=== PATIENT | male | born 2000 | race Caucasian/White ===

== ENCOUNTER 2021-08-08 19:39 | Observation (INO) ==
[2021-08-08 20:09] LABS: Basophils # (auto) 0.03 K/uL (0-0.2); Basophils % (auto) 0.3 %; Eosinophils # (auto) 0.06 K/uL (0-0.5); Eosinophils % (auto) 0.6 %; Hematocrit (blood only) 45.2 % (42-52); Hemoglobin 15.3 g/dL (14.0-18.0); Immature Granulocytes # (auto) 0.02 K/uL (0.00-0.02); Immature Granulocytes % (auto) 0.2 %; Lymphocytes % (auto) 11.9 %; Mean Corpuscular Hemoglobin 29.6 pg (25-34); Mean Corpuscular Hgb Conc 33.8 g/dL (32-36); Mean Corpuscular Volume 87.4 fL (80-100); Mean Platelet Volume 8.8 fL (7.4-10.4); Monocytes # (auto) 0.92 K/uL (0.11-0.59); Monocytes % (auto) 8.5 %; Neutrophils # (auto) 8.55 K/uL (1.4-6.5); Neutrophils % (auto) 78.5 %; Platelet Count 330 K/uL (130-400); RDW Coefficient of Variation 13.5 % (11.5-14.5); RDW Standard Deviation 43.6 fL (36.4-46.3); Red Blood Count 5.17 M/uL (4.7-6.1); White Blood Count 10.88 K/uL (4.8-10.8)
[2021-08-08 20:10] LABS: Appearance Urine Clear (Clear); Bacteria Urine Automated Negative (Negative); Bilirubin Urine Negative (Negative); Blood Urine Trace (Negative); Cast Urine Automated 0 /lpf (0-5); Color Urine Yellow; Epithelial Cell Urine Auto 0-5 /lpf (0-5); Glucose Urine UA Negative (Negative); Ketones Urine Negative (Negative); Leukocyte Esterase Urine Negative (Negative); Nitrite Urine Negative (Negative); Protein Urine Negative (Negative); RBC Urine Automated 0-4 /hpf (0-4); Specific Gravity Urine 1.003 (1.000-1.030); Urobilinogen Urine Negative (Negative); WBC Urine Automated 0 /hpf (0-5); pH Urine 6.5 (4.5-7.5)
[2021-08-08] MEDS ORDERED: SODIUM CHLORIDE 0.9% 1000ML 1,000 ML IV ONE (20:18)
--- NOTE | 2021-08-08 20:21 | Emergency Department Note ---
Impression & Plan RLQ abdominal pain, Leukocytosis ED Provider Note NAME: MAXIMUS YANG AGE: 20 SEX: M : 2000 ARRIVES VIA: Walk-In INFORMANT: [Patient] ED PROVIDER(S): [Carlos Mejia MD] CHIEF COMPLAINT: Abdominal pain HISTORY OF PRESENT ILLNESS: The patient is a 20-year-old male presents to the ER with around 14 to 16 hours of right lower quadrant abdominal pain. The pain is a 6 on a scale of 1-10. It is constant and does not radiate. He had a bit of nausea but there has been no vomiting. No fever, no urinary complaints, no cough, cold or congestion. He has not suffered any abdominal trauma. He did notice some loose stool, no black or bloody stool. The patient spoke to a nurse, he was referred to the ED for the possibility of appendicitis. REVIEW OF SYSTEMS: See HPI for pertinent positives and negatives. A total of ten systems were reviewed and were otherwise negative. PMHx/PSHx: See Below SOCIAL HISTORY: See Below. PHYSICAL EXAM: GENERAL: Patient is in no acute distress. HEENT: No acute trauma, normocephalic atraumatic, mucous membranes moist, no nasal congestion, no scleral icterus. NECK: No stridor, no adenopathy, no meningismus, trachea is midline. LUNGS: Clear to auscultation bilaterally, no wheeze, no rhonchi, breath sounds equal. HEART: Without murmurs gallops or rubs, regular rate and rhythm. ABDOMEN: Soft, moderately tender in the right lower quadrant, bowel sounds positive, no hernias, no peritonitis. EXTREMITIES: No cyanosis or edema, full range of motion of all the joints without pain or difficulty, no signs for acute trauma. NEUROLOGIC: Oriented x 3, no acute motor or sensory deficits, no focal weakness. SKIN: No rash, no jaundice, no diaphoresis. DIFFERENTIAL DIAGNOSIS: Appendicitis, testicular torsion, diverticulitis, UTI, obstruction, mesenteric ischemia, aortic pathology, inflammatory bowel disease, renal colic, PUD, pancreatitis, biliary pathology, hernia, volvulus, constipation, as well as other pathologies. EMERGENCY DEPARTMENT COURSE/PROCEDURES: MEDICAL DECISION MAKING: There is a subtle leukocytosis which could be consistent with infection. No worrisome anemia. There is a normal platelet count. Potassium is a bit low but not in need of emergent correction. No renal failure. No worrisome liver enzyme elevation. No evidence for pancreatitis. Urinalysis does not show any evidence for infection. Abdominal and pelvis CT suggests potential early appendicitis with a dilated appendix. On exam, the patient was tender in the right lower quadrant. He was not febrile or toxic. The patient received IV saline, 1 L. He was eventually given a dose of IV Mefoxin as antibiotic coverage. I spoke to the patient, I talked to general surgery. The patient is being hospitalized for a potential appendectomy if his symptoms persist into the morning. Case management has been involved. Past Med/Surg History Medical History No significant medical problems Social History Smoking Status: Never smoker Preferred Language: Montenegrin Feels Safe at Home: Yes Allergies Allergies Allergy/AdvReac Type Severity Reaction Status Date / Time house dust Allergy Intermediate ITCHY Verified 08/08/21 21:01 EYES, SNEEZING, CONGESTION Home Meds Home Medications Medication Instructions Recorded Confirmed ibuprofen 200 mg tablet 200 mg PO DIRECTED PRN 08/08/21 08/08/21 simethicone 80 mg chewable tablet 80 mg PO DIRECTED PRN 08/08/21 08/08/21 Results & Data (ED) Vital Signs Vital Signs - 24 hr 08/08/21 19:46 08/08/21 20:38 Temperature 36.9 C Temperature Source Temporal Artery Scan Pulse Rate 72 Pulse Rate [Finger] 76 Pulse Rhythm [Finger] Regular Pulse Strength [Finger] Normal Respiratory Rate 19 18 Respiratory Effort / Characteristics Non-Labored Spontaneous Respiratory Depth Normal Blood Pressure 135/77 Blood Pressure [Right Arm] 135/65 Blood Pressure Mean 96 Blood Pressure Mean [Right Arm] 88 Blood Pressure Position [Right Arm] Lying Pulse Oximetry 98 98 Oxygen Delivery Method Room Air Room Air Sepsis Recent Fever Within 48 Hours No Sepsis New/Unexplained Change in Mental Status N/A Sepsis Action Taken by Nursing No Action Required Home Medications Current Medication List: was personally reviewed by me Laboratory Data Attestation: I reviewed the patient's lab results. Result diagrams: 08/08/21 19:54 08/08/21 19:54 Lab Results 02/24/22 02/24/22 02/24/22 Range/Units 19:54 19:54 19:56 WBC 10.88 H (4.8-10.8) K/uL RBC 5.17 (4.7-6.1) M/uL Hgb 15.3 (14.0-18.0) g/dL Hct 45.2 (42-52) % MCV 87.4 (80-100) fL MCH 29.6 (25-34) pg MCHC 33.8 (32-36) g/dL RDW Std Deviation 43.6 (36.4-46.3) fL RDW Coeff of [place] 13.5 (11.5-14.5) % Plt Count 330 (130-400) K/uL MPV 8.8 (7.4-10.4) fL Immature Gran % (Auto) 0.2 % Neut % (Auto) 78.5 % Lymph % (Auto) 11.9 % [place] % (Auto) 8.5 % Eos % (Auto) 0.6 % Baso % (Auto) 0.3 % Neut # (Auto) 8.55 H (1.4-6.5) K/uL Lymph # (Auto) 1.30 (1.2-3.4) K/uL [place] # (Auto) 0.92 H (0.11-0.59) K/uL Eos # (Auto) 0.06 (0-0.5) K/uL Baso # (Auto) 0.03 (0-0.2) K/uL Immature Gran # (Auto) 0.02 (0.00-0.02) K/uL Sodium 137 (136-145) mmol/L Potassium 3.4 L (3.5-5.1) mmol/L Chloride 99 (98-107) mmol/L Carbon Dioxide 28 (21-32) mmol/L Anion Gap 10 (3-11) BUN 10 (6-23) mg/dl Creatinine 0.86 (0.6-1.4) mg/dl Est Cr Clr Drug Dosing 129.8 ml/min Est GFR ( Amer) 145.7 ml/min Est GFR (Non-Af Amer) 125.7 ml/min BUN/Creatinine Ratio 11.6 (10-20) Glucose 94 (70-99(Fasting)) mg/dl Calcium 9.8 (8.5-10.1) mg/dl Total Bilirubin 1.1 H (0.2-1.0) mg/dl AST 30 (13-39) U/L ALT 31 (7-52) U/L Alkaline Phosphatase 67 (34-104) U/L Total Protein 7.9 (6.0-8.3) gm/dl Albumin 5.0 (3.4-5.0) gm/dl Globulin 2.9 (2.5-4.0) gm/dl Albumin/Globulin Ratio 1.7 (0.9-2) Lipase 13 (11-82) U/L Urine Color Yellow Urine Appearance Clear (Clear) Urine pH 6.5 (4.5-7.5) Ur Specific [place] 1.003 (1.000-1.030) Urine Protein Negative (Negative) Urine Glucose (UA) Negative (Negative) Urine Ketones Negative (Negative) Urine Blood Trace H (Negative) Urine Nitrite Negative (Negative) Urine Bilirubin Negative (Negative) Urine Urobilinogen Negative (Negative) Ur Leukocyte Esterase Negative (Negative) Urine WBC (Auto) 0 (0-5) /hpf Urine RBC (Auto) 0-4 (0-4) /hpf U Hyaline Cast (Auto) 0 (0-5) /lpf U Epithel Cells (Auto) 0-5 (0-5) /lpf Urine Bacteria (Auto) Negative (Negative) Administered Medications Discontinued Medications Sodium Chloride (Nss 1000ml) 1,000 mls @ 999 mls/hr IV .Q1H1M ONE Stop: 08/08/21 21:18 Last Admin: 08/08/21 20:38 Dose: 999 mls/hr Documented by: [id number] Ioversol (Optiray 320 100ml) 95 ml IV ONCE ONE Stop: 08/08/21 20:46 Last Admin: 08/08/21 20:48 Dose: 95 ml Documented by: [id number] Imaging Data Radiologist's Impression: Abdomen/Pelvis CT 08/08/21 20:17 CT OF THE ABDOMEN AND PELVIS WITH CONTRAST CLINICAL HISTORY: Right lower quadrant abdominal pain. COMPARISON STUDY: None. TECHNIQUE: Following IV administration of 95 mL of Optiray, axial images of the abdomen and pelvis were obtained from the lung bases to the proximal femurs. Images were reviewed in the axial, sagittal, and coronal planes. IV contrast was administered without complication. Automated exposure control was utilized for the study. A dose lowering technique was utilized adhering to the principles of ALARA. CT DOSE: 277.58 mGy.cm FINDINGS: Lung bases are unremarkable. There is pectus excavatum deformity. No pneumatosis, free air or portal venous gas is present. The liver, spleen, adrenal glands, kidneys and pancreas are normal. There is no biliary or pancreatic ductal dilatation. No peripancreatic or pericholecystic infiltration is present. There is no hydronephrosis. There is no evidence for a bowel obstruction. The appendix is fluid-filled slightly dilated, measuring 7 mm in caliber. There is no periappendiceal infiltration. No free air or abscess is present. The appendiceal wall is slightly prominent. There is no ascites. No lymphadenopathy is present. A 1.5 cm midline prostatic cyst may reflect a prostatic utricle cyst. No acute fracture or suspicious lesion is identified within the visualized skeletal structures. IMPRESSION: Fluid-filled, minimally dilated appendix. No periappendiceal infiltration. Although equivocal, these findings do not strongly suggest acute appendicitis. Close clinical follow-up is recommended. ACT 112: Negative or not required by law. Electronically signed by: Cameron Maloney M.D. 08/08/2021 9:30 PM Discharge Plan Visit Data Chief Complaint: Abdominal Pain Stated Complaint: ABDOMINAL PAIN ED Provider: Carlos Mejia Discharge Problem: RLQ abdominal pain, Leukocytosis Patient Disposition: Admitted As Inpatient Condition: Good Forms Stand Alone Forms: [employer] Prescriptions Prescriptions: No Action ibuprofen 200 mg Tablet 200 mg PO DIRECTED PRN (Reason: Pain) RF: 0 simethicone [Gas-X] 80 mg Tablet,Chewable 80 mg PO DIRECTED PRN (Reason: BLOATING/GAS RELIEF) RF: 0 Referrals Referrals: PCP,NO [Primary Care Provider] -
[2021-08-08 20:27] LABS: Albumin Globulin Ratio 1.7 (0.9-2); BUN Creatinine Ratio 11.6 (10-20); Bilirubin,Total 1.1 mg/dl (0.2-1.0); Calcium 9.8 mg/dl (8.5-10.1); Creatinine Clr Calc Pharmacy 129.8 ml/min; Est GFR (African American) 145.7 ml/min; Est GFR (Non-African American) 125.7 ml/min; Globulin 2.9 gm/dl (2.5-4.0); Potassium 3.4 mmol/L (3.5-5.1); Total Protein 7.9 gm/dl (6.0-8.3)
[2021-08-08] MEDS ORDERED: OPTIRAY 320 100ml IV ONE (20:45)
--- NOTE | 2021-08-08 21:31 | CT Scan Report ---
CT OF THE ABDOMEN AND PELVIS WITH CONTRAST CLINICAL HISTORY: Right lower quadrant abdominal pain. COMPARISON STUDY: None. TECHNIQUE: Following IV administration of 95 mL of Optiray, axial images of the abdomen and pelvis we re obtained from the lung bases to the proximal femurs. Images were reviewed in the axial, sagittal, and coronal planes. IV contrast was administered without complication. Automated exposure control wa s utilized for the study. A dose lowering technique was utilized adhering to the principles of ALARA . CT DOSE: 277.58 mGy.cm FINDINGS: Lung bases are unremarkable. There is pectus excavatum deformity. No pneumatosis, free air or portal venous gas is present. The liver, spleen, adrenal glands, kidneys and pancreas are normal. There is no biliary or pancreatic ductal dilatation. No peripancreatic or pericholecystic infiltratio n is present. There is no hydronephrosis. There is no evidence for a bowel obstruction. The appendix is fluid-filled slightly dilated, measuring 7 mm in caliber. There is no periappendiceal infiltration . No free air or abscess is present. The appendiceal wall is slightly prominent. There is no ascites. No lymphadenopathy is present. A 1.5 cm midline prostatic cyst may reflect a prostatic utricle cyst. No acute fracture or suspicious lesion is identified within the visualized skeletal structures. IMPRESSION: Fluid-filled, minimally dilated appendix. No periappendiceal infiltration. Although equi vocal, these findings do not strongly suggest acute appendicitis. Close clinical follow-up is recomme nded. ACT 112: Negative or not required by law. Electronically signed by: Cameron Maloney M.D. 08/08/2021 9:30 PM
[2021-08-08] MEDS ORDERED: cefOXitin 2,000 MG/60 ML BAG IV STA (21:44)
--- NOTE | 2021-08-08 22:10 | History & Physical Report ---
Date of Service August 08, 2021 Assessment & Plan (1) Appendicitis: Plan: Due to the patient's clinical presentation, slightly elevated white blood cell count, and CT scan findings we will proceed as follows: We will admit the patient to the hospital Analgesics will be provided Antiemetics will be provided We will hydrate the patient with IV fluids We will supplement the patient's potassium We will administer antibiotics. The treating physician the emergency department has initiated cefoxitin which we will continue We will make the patient n.p.o. We are tentatively planning on performing a laparoscopic, possible open appendectomy tomorrow morning with Dr. Baron. I have outlined the risks, benefits, and alternatives with the patient. I have also discussed the expected postoperative course with the patient and he wishes to proceed. Additional recommendations will be forthcoming based on operative findings and the patient's clinical course as it unfolds SCDs will be used for DVT prevention. No chemical means due to planned surgery He will be level 1 full code History of Present Illness Chief Complaint: Abdominal pain Primary Care Provider: NO PCP This is a 20-year-old male who presented to [facility] emergency department secondary to abdominal pain. Patient said that the pain had been present for approximately 14 hours prior to his presentation to the emergency department. He initially described the pain as a generalized bandlike pain across his entire lower abdomen without radiation. He notes that since pain began it has shifted to the right lower quadrant. He has had nausea without vomiting. He does note some decreased appetite. He denies any fevers, shakes, chills. He notes that he has never had any prior abdominal surgeries In the emergency department patient had labs and imaging which I independently reviewed. A CBC revealed a slight elevation of his white blood cell count at 10.8. Hemoglobin, hematocrit, and platelet count were all noted to be normal. Chemistry profile showed sodium, BUN, and creatinine were all normal. His pota ssium was slightly decreased at 3.4. Urinalysis was not indicative of infection. CT scan of the abdomen pelvis showed that the appendix was minimally dilated but fluid-filled. There is really not much in the way of periappendiceal infiltration. At the time of my interview he was resting comfortably in bed in no distress Allergies Allergy/AdvReac Type Severity Reaction Status Date / Time house dust Allergy Intermediate ITCHY Verified 08/08/21 21:01 EYES, SNEEZING, CONGESTION Home Medications Medication Instructions Recorded Confirmed Type ibuprofen 200 mg tablet 200 mg PO DIRECTED PRN 08/08/21 08/08/21 History simethicone 80 mg chewable tablet 80 mg PO DIRECTED PRN 08/08/21 08/08/21 History Past Med/Surg History Medical History No significant medical problems Social History Smoking Status: Never smoker Preferred Language: Occitan Feels Safe at Home: Yes Review of Systems Constitutional: no fever and no chills Eyes: no diplopia Ear, Nose, Mouth, Throat: no ear pain Respiratory: no cough and no dyspnea Cardiovascular: no chest pain Gastrointestinal: + abdominal pain and + nausea; no vomiting Genitourinary: no dysuria Musculoskeletal: no back pain Integumentary: no rash Neurologic: no localized weakness Physical Exam Constitutional: well developed, well nourished and + thin; no acute distress Eyes: no conjunctival abnormality ENMT: Ears: no hearing impairment Neck: trachea midline Respiratory: normal respiratory effort; no respiratory distress and no labored breathing Cardiovascular: Rate/Rhythm: regular rate and regular rhythm Gastrointestinal (Abdomen): Abdomen is soft and nondistended. There is no rebound tenderness or guarding. The patient did have pain with deep palpation in the right lower quadrant over McBurney's point Musculoskeletal: No calf tenderness Skin: no rashes Neurologic: moves all extremities Psychiatric: A+Ox3, euthymic affect Results & Data Results & Data ([facility]) Vital Signs (Past 12 Hours) Vital Signs Temp Pulse Pulse Resp BP BP Pulse Ox 08/08/21 20:38 76 18 135/65 98 08/08/21 19:46 36.9 C 72 19 135/77 98 Supervising Physician Co-Signing Physician Notes Patient discussed with ABENA Garcia, labs and films reviewed, agree with above. Presented with RLQ abdominal pain. WBC mild elevation with left shift. CT personally reviewed. Likely acute appendicits, plan for OR in am. PG Care Time/CCT Total # of Minutes Spent Total Time Spent with Patient: Total time spent is greater than 50% in coordination of care (as documented) at patient's floor/unit and/or counseling patient: Coding Level of Care Code INT OBSERVATION CARE 70M LVL 3 Diagnoses Appendicitis K37
[2021-08-09] MEDS ORDERED: ACETAMINOPHEN 1,000 MG/100 ML VIAL IV PRN (00:38)
[2021-08-09] MEDS ORDERED: ONDANSETRON INJ 2 MG/ML 2 ML VIAL IV PRN ×2 (00:38→07:55)
[2021-08-09] MEDS ORDERED: MoRPHine SULFATE 2 MG/ML CARP IV PRN (00:38)
[2021-08-09] MEDS ORDERED: POTASSIUM CHLORIDE / WTR 10 MEQ/100 ML PLCT IV ONE (01:00)
[2021-08-09] MEDS: LACTATED RINGER'S 1,000 ML IV SCH ×2 (01:09→16:02)
[2021-08-09] MEDS: cefOXitin 2,000 MG in DEXTROSE 5% 50 ML IV SCH ×2 (03:51→10:45)
[2021-08-09] MEDS ORDERED: PROPOFOL IV EMULSION 10 MG/ML 20 ML VIAL IV ONE (07:10)
[2021-08-09] MEDS ORDERED: ONDANSETRON INJ 2 MG/ML 2 ML VIAL ONE (07:10)
[2021-08-09] MEDS ORDERED: ROCURONIUM BROMIDE 10 MG/ML 5 ML VIAL IV ONE (07:10)
[2021-08-09] MEDS ORDERED: LIDOCAINE 2% 2 ML VIAL/AMP(20MG/ML) INFIL ONE (07:10)
[2021-08-09] MEDS ORDERED: DEXAMETHASONE SOD INJ 4 MG/ML VIAL ONE (07:10)
[2021-08-09] MEDS ORDERED: MIDAZOLAM HCL 1 MG/ML 2ML VIAL ONE (07:11)
[2021-08-09] MEDS ORDERED: fentaNYL citrate 100 MCG/2 ML VIAL ONE ×2 (07:11→08:24)
--- NOTE | 2021-08-09 07:16 | Anesthesiology Consultation ---
Date of Service August 09, 2021 Assessment & Plan (1) Encounter for pre-operative examination: Chart Review Chart Review: Acceptable Risk for Surgery and Patient NOT seen in Pre Admission Testing Consults Requested none History Surgery Operation Date: 08/09/21 13:05 Proposed Procedures p Laparoscopic Appendectomy, Possible Open - Trell Baron DO, FACS Height/Weight Height: 5 ft 11 in Weight: 72.575 kg Allergies Allergy/AdvReac Type Severity Reaction Status Date / Time house dust Allergy Intermediate ITCHY Verified 08/08/21 21:01 EYES, SNEEZING, CONGESTION Medications Home Medications Medication Instructions Recorded Confirmed Last Taken ibuprofen 200 mg tablet 200 mg PO DIRECTED PRN 08/08/21 08/08/21 08/08/21 simethicone 80 mg chewable tablet 80 mg PO DIRECTED PRN 08/08/21 08/08/21 08/08/21 Active Medications Generic Name Dose Route Start Last Admin Trade Name Freq PRN Reason Stop Dose Admin Cefoxitin Sodium 2,000 mg/ 60 mls @ 100 mls/hr 08/09/21 04:00 08/09/21 04:31 Dextrose IV 08/19/21 03:59 Infused Q6H MAKAYLA Infusion Lactated Ringer's 1,000 mls @ 75 mls/hr 08/09/21 00:38 08/09/21 01:09 Lr IV 09/08/21 00:37 75 mls/hr .[id number] Administration NPO Date Last Intake of Fluids: 08/08/21 Past Medical History Medical History No significant medical problems Social History Smoking Status: Never smoker Hx Alcohol Use: No Hx Substance Use: No Physical Exam Vital Signs Last Vital Signs Temp 98.1 F 08/09/21 00:31 Pulse 69 08/09/21 00:31 Resp 14 08/09/21 00:31 BP 136/71 08/09/21 00:31 Pulse Ox 96 08/09/21 00:31 Testing Laboratory Results 08/08/21 19:54 08/08/21 19:54 Urine Color Yellow 08/08/21 19:56 Urine Appearance Clear (Clear) 08/08/21 19:56 Urine pH 6.5 (4.5-7.5) 08/08/21 19:56 Ur Specific [place] 1.003 (1.000-1.030) 08/08/21 19:56 Urine Protein Negative (Negative) 08/08/21 19:56 Urine Glucose (UA) Negative (Negative) 08/08/21 19:56 Urine Ketones Negative (Negative) 08/08/21 19:56 Urine Nitrite Negative (Negative) 08/08/21 19:56 Ur Leukocyte Esterase Negative (Negative) 08/08/21 19:56 Urine WBC (Auto) 0 /hpf (0-5) 08/08/21 19:56 Urine RBC (Auto) 0-4 /hpf (0-4) 08/08/21 19:56 U Hyaline Cast (Auto) 0 /lpf (0-5) 08/08/21 19:56 U Epithel Cells (Auto) 0-5 /lpf (0-5) 08/08/21 19:56 Urine Bacteria (Auto) Negative (Negative) 08/08/21 19:56
[2021-08-09] MEDS ORDERED: ATROPINE SULFATE 0.1 MG/ML 10ML SYR IV PRN (07:55)
[2021-08-09] MEDS ORDERED: ePHEDrine sulfate 50 MG/ML AMP IV PRN (07:55)
[2021-08-09] MEDS ORDERED: fentaNYL citrate 100 MCG/2 ML VIAL IV PRN (07:55)
[2021-08-09] MEDS ORDERED: PROMETHAZINE HCL 6.25 MG in SODIUM CHLORIDE 0.9% 50 ML IV PRN (07:55)
[2021-08-09] MEDS ORDERED: BUPIVACAINE 0.5 % 5 MG/1 ML MPF 30ML VIAL ONE (08:00)
--- NOTE | 2021-08-09 08:01 | Surgery Progress Note ---
Date of Service August 09, 2021 Assessment & Plan (1) Appendicitis: Plan: 20 year old male with acute appendicitis plan for laparoscopic appendectomy risks discussed to include but not limited to bleeding, infection, normal appendix, open surgery, damage to surrounding structures, abscess, need for future or more extensive surgery, and risks of anesthesia. Likely home later today Admission and Anticipated Discharge Date Admission Date: August 08, 2021 Subjective 20-year-old male admitted for acute appendicitis. Still with some pain in the right lower quadrant, no issues overnight Physical Exam Constitutional: WD/WN, vitals as above Respiratory: normal respiratory effort, lungs clear to auscultation Cardiovascular: RRR, no murmur, no edema Gastrointestinal (Abdomen): Percussion/Palpation: + abdomen tender (Tender to palpation in the right lower quadrant) and abdomen soft; no guarding, abdomen not rigid and no hepatosplenomegaly Results & Data ([facility]) Vital Signs (Past 12 Hours) Vital Signs Temp Pulse Pulse Resp BP Pulse Ox 08/09/21 07:42 36.7 C 82 18 146/73 H 99 08/09/21 07:34 36.4 C L 101 H 16 157/67 H 97 08/09/21 00:31 36.7 C 69 14 136/71 96 08/09/21 00:27 93 H 16 96 08/09/21 00:19 37.1 C 93 H 16 127/59 L 96 08/08/21 22:00 71 18 130/69 99 08/08/21 20:38 76 18 135/65 98 Laboratory Results Laboratory Results - last 24 hr 08/08/21 08/08/21 08/08/21 19:54 19:54 19:56 WBC 10.88 H RBC 5.17 Hgb 15.3 Hct 45.2 MCV 87.4 MCH 29.6 MCHC 33.8 RDW Std Deviation 43.6 RDW Coeff of [place] 13.5 Plt Count 330 MPV 8.8 Immature Gran % (Auto) 0.2 Neut % (Auto) 78.5 Lymph % (Auto) 11.9 [place] % (Auto) 8.5 Eos % (Auto) 0.6 Baso % (Auto) 0.3 Neut # (Auto) 8.55 H Lymph # (Auto) 1.30 [place] # (Auto) 0.92 H Eos # (Auto) 0.06 Baso # (Auto) 0.03 Immature Gran # (Auto) 0.02 Sodium 137 Potassium 3.4 L Chloride 99 Carbon Dioxide 28 Anion Gap 10 BUN 10 Creatinine 0.86 Est Cr Clr Drug Dosing 129.8 Est GFR ( Amer) 145.7 Est GFR (Non-Af Amer) 125.7 BUN/Creatinine Ratio 11.6 Glucose 94 Calcium 9.8 Total Bilirubin 1.1 H AST 30 ALT 31 Alkaline Phosphatase 67 Total Protein 7.9 Albumin 5.0 Globulin 2.9 Albumin/Globulin Ratio 1.7 Lipase 13 Urine Color Yellow Urine Appearance Clear Urine pH 6.5 Ur Specific [place] 1.003 Urine Protein Negative Urine Glucose (UA) Negative Urine Ketones Negative Urine Blood Trace H Urine Nitrite Negative Urine Bilirubin Negative Urine Urobilinogen Negative Ur Leukocyte Esterase Negative Urine WBC (Auto) 0 Urine RBC (Auto) 0-4 U Hyaline Cast (Auto) 0 U Epithel Cells (Auto) 0-5 Urine Bacteria (Auto) Negative SARS-CoV-2, RNA, NAAT 08/08/21 22:42 WBC RBC Hgb Hct MCV MCH MCHC RDW Std Deviation RDW Coeff of [place] Plt Count MPV Immature Gran % (Auto) Neut % (Auto) Lymph % (Auto) [place] % (Auto) Eos % (Auto) Baso % (Auto) Neut # (Auto) Lymph # (Auto) [place] # (Auto) Eos # (Auto) Baso # (Auto) Immature Gran # (Auto) Sodium Potassium Chloride Carbon Dioxide Anion Gap BUN Creatinine Est Cr Clr Drug Dosing Est GFR ( Amer) Est GFR (Non-Af Amer) BUN/Creatinine Ratio Glucose Calcium Total Bilirubin AST ALT Alkaline Phosphatase Total Protein Albumin Globulin Albumin/Globulin Ratio Lipase Urine Color Urine Appearance Urine pH Ur Specific [place] Urine Protein Urine Glucose (UA) Urine Ketones Urine Blood Urine Nitrite Urine Bilirubin Urine Urobilinogen Ur Leukocyte Esterase Urine WBC (Auto) Urine RBC (Auto) U Hyaline Cast (Auto) U Epithel Cells (Auto) Urine Bacteria (Auto) SARS-CoV-2, RNA, NAAT NEGATIVE Diagnostic Findings CT OF THE ABDOMEN AND PELVIS WITH CONTRAST CLINICAL HISTORY: Right lower quadrant abdominal pain. COMPARISON STUDY: None. TECHNIQUE: Following IV administration of 95 mL of Optiray, axial images of the abdomen and pelvis were obtained from the lung bases to the proximal femurs. Images were reviewed in the axial, sagittal, and coronal planes. IV contrast was administered without complication. Automated exposure control was utilized for the study. A dose lowering technique was utilized adhering to the principles of ALARA. CT DOSE: 277.58 mGy.cm FINDINGS: Lung bases are unremarkable. There is pectus excavatum deformity. No pneumatosis, free air or portal venous gas is present. The liver, spleen, adrenal glands, kidneys and pancreas are normal. There is no biliary or pancreatic ductal dilatation. No peripancreatic or pericholecystic infiltration is present. There is no hydronephrosis. There is no evidence for a bowel obstruction. The appendix is fluid-filled slightly dilated, measuring 7 mm in caliber. There is no periappendiceal infiltration. No free air or abscess is present. The appendiceal wall is slightly prominent. There is no ascites. No lymphadenopathy is present. A 1.5 cm midline prostatic cyst may reflect a prostatic utricle cyst. No acute fracture or suspicious lesion is identified within the visualized skeletal structures. IMPRESSION: Fluid-filled, minimally dilated appendix. No periappendiceal infiltration. Although equivocal, these findings do not strongly suggest acute appendicitis. Close clinical follow-up is recommended. PG Care Time/CCT Total # of Minutes Spent Total Time Spent with Patient: Total time spent is greater than 50% in coordination of care (as documented) at patient's floor/unit and/or counseling patient: Coding Level of Care Code 64230 Subseq Obs Care Lvl 1 Diagnoses Appendicitis K37
[2021-08-09] MEDS ORDERED: GLYCOPYRROLATE 0.2 MG/ML VIAL ONE (08:23)
[2021-08-09] MEDS ORDERED: NEOSTIGMINE METHYLSULFATE 1 MG/ML 10ML VIAL ONE (08:23)
--- NOTE | 2021-08-09 08:48 | Operative Report ---
PG Post Operative Report Pre & Post Diagnosis Operation Date: 08/09/21 13:05 Pre-Op Diagnosis: acute appendicitis Post-Op Diagnosis: acute appendicitis I identified the patient and participated in the time-out.: Yes Procedure Operation Date: 08/09/21 13:05 Actual Procedures p Laparoscopic Appendectomy(Not Applicable) - Trell Baron DO, LUIZA Surgeon Trell Baron DO, FACS Pin Or Clip Fastener Joanne Jackson Estimated Blood Loss 5 Findings Consistent with Post-Op Diagnosis Acute, nonperforated appendicitis. Specimens Appendix Anesthesia Type General Complications none Disposition Accompanied Patient To Recovery: No Disposition: Recovery Room Indications 20-year-old male admitted with acute appendicitis, plan for laparoscopic appendectomy. The risks of the procedure were discussed, all questions were answered, and the patient agreed to proceed with surgery as planned. Description of Procedure The patient was properly identified, consented, and taken to the operating room where he was placed in the supine position. General endotracheal anesthesia was induced. SCDs and a safety belt were placed. Preoperative antibiotics were administered. A Mckeon catheter was not placed. The patient's abdomen was prepped and draped in the standard sterile fashion. Surgical timeout was performed and all parties were in agreement that this was the correct patient and procedure to be performed and we continued as planned. A curvilinear infraumbilical incision was made with electrocautery and deepened down to the fascia with blunt dissection. The base of the umbilicus was grasped with a Eva and elevated towards the ceiling. An incision was made in the midline fascia with a knife and entry into the peritoneum was confirmed. Stay suture of 0 Vicryl was placed and a Brady trocar was inserted. The abdomen was insufflated with carbon dioxide which the patient tolerated without incident. The laparoscope was inserted and no damage from initial trocar placement was noted, no gross abnormalities were noted within the 4 quadrants the abdomen. 5 mm ports were then placed in the left lower quadrant with care not to damage the epigastric vessels, and in the suprapubic midline with care not to damage the bladder. The patient was placed in Trendelenburg position and rotated towards the left. The small bowel was swept away from the right lower quadrant. The cecum was grasped with an atraumatic grasper exposing the appendix. The appendix was moderately inflamed in the distal third and there was no evidence of perf oration. There was no fluid in the pelvis. A window was created between the base of the appendix and the mesoappendix. A turner loaded endoscopic stapler was then used to divide the appendix at its base. A turner load was then used to divide the mesoappendix. Hemostasis was good. The appendix was placed in an Endo Catch bag and removed through the umbilical port site. The right lower quadrant and pelvis was irrigated and hemostasis was found to be good. 5 mm trochars were removed under direct visualization and the abdomen was allowed to collapse. The umbilical port site fascia was closed with 0 Vicryl suture. The wound was irrigated, and the skin of all ports was closed with 4-0 Monocryl subcuticular sutures. Dermabond was placed over the wounds. The patient was extubated in the operating room and taken to the PACU where he recovered without apparent incident. All sponge, instrument and needle counts were correct at the conclusion of the procedure. The patient tolerated the procedure well. The physician's pet care assistant was present and scrubbed for the entire the case. She was critical in positioning the patient, prepping and draping, retraction and exposure, driving the laparoscope, removal of the appendix, closure the incisions, and placement of the dressings. I attest to the content of the Intraoperative Record and any orders documented therein. Any exceptions are noted below.
--- NOTE | 2021-08-09 09:29 | Anesthesiology Progress Note ---
Date of Service August 09, 2021 Anesthesia Post Procedure Vital Signs Vital Signs: Temp Pulse Pulse Pulse Resp BP BP 08/09/21 09:15 60 21 107/56 L 08/09/21 09:05 63 16 110/59 L 08/09/21 08:58 97.3 F L 59 L 10 L 113/65 08/09/21 07:42 98.1 F 82 18 146/73 H 08/09/21 07:34 97.5 F L 101 H 16 157/67 H 08/09/21 00:31 98.1 F 69 14 136/71 08/09/21 00:27 93 H 16 08/09/21 00:19 98.8 F 93 H 16 127/59 L 08/08/21 22:00 71 18 130/69 08/08/21 20:38 76 18 135/65 08/08/21 19:46 98.4 F 72 19 135/77 Pulse Ox 08/09/21 09:15 98 08/09/21 09:05 97 08/09/21 08:58 99 08/09/21 07:42 99 08/09/21 07:34 97 08/09/21 00:31 96 08/09/21 00:27 96 08/09/21 00:19 96 08/08/21 22:00 99 08/08/21 20:38 98 08/08/21 19:46 98 Pain Intensity Right Abdomen: Pain Intensity: 0 Transfer of Care Handoff Completed per policy Notes Mental Status: alert / awake / arousable and participated in evaluation Patient Amnestic to Procedure: Yes Nausea / Vomiting: adequately controlled Pain: adequately controlled Airway Patency, RR, SpO2: stable & adequate BP & HR: stable & adequate Hydration State: stable & adequate Anesthetic Complications: no major complications apparent and Pt Satisfied with anesthetic care
[2021-08-09] MEDS ORDERED: oxyCODONE/ACETAMINOPHEN 5mg/325mg TAB PO PRN ×2 (09:54)
[2021-08-09] MEDS ORDERED: IBUPROFEN 200 MG TAB PO STA (13:52)
[2021-08-09] MEDS ORDERED: IBUPROFEN 200 MG TAB PO PRN (14:18)
[2021-08-09] MEDS ORDERED: ACETAMINOPHEN 325 MG TAB PO PRN (14:19)
--- NOTE | 2021-08-13 10:26 | Discharge Summary ---
Date of Service July, Admission HPI Per Admitting Provider This is a 20-year-old male who presented to [facility] emergency department secondary to abdominal pain. Patient said that the pain had been present for approximately 14 hours prior to his presentation to the emergency department. He initially described the pain as a generalized bandlike pain across his entire lower abdomen without radiation. He notes that since pain began it has shifted to the right lower quadrant. He has had nausea without vomiting. He does note some decreased appetite. He denies any fevers, shakes, chills. He notes that he has never had any prior abdominal surgeries In the emergency department patient had labs and imaging which I independently reviewed. A CBC revealed a slight elevation of his white blood cell count at 10.8. Hemoglobin, hematocrit, and platelet count were all noted to be normal. Chemistry profile showed sodium, BUN, and creatinine were all normal. His potassium was slightly decreased at 3.4. Urinalysis was not indicative of infection. CT scan of the abdomen pelvis showed that the appendix was minimally dilated but fluid-filled. There is really not much in the way of periappendiceal infiltration. At the time of my interview he was resting comfortably in bed in no distress Principal Diagnosis acute appendicitis Discharge Exam awake/alert Gastrointestinal (Abdomen) Inspection/Auscultation: + abdominal surgical incision (c/d/i with dermabond) Discharge Data Allergies Allergy/AdvReac Type Severity Reaction Status Date / Time house dust Allergy Intermediate ITCHY Verified 08/08/21 21:01 EYES, SNEEZING, CONGESTION Consultations 08/08/21 21:44 ED Decision to Admit Stat Procedures Performed Operation Date: 08/09/21 13:05 Actual Procedures p Laparoscopic Appendectomy(Not Applicable) - Trell Baron DO, FACS Ordered Studies 08/08/21 20:17 CT abd pelvis IV con only Stat Hospital Course (1) Appendicitis: This is a 20yM who presented to the [facility] ED on 08/08/21 with abdominal pain. Workup in the ED showed a WBC of 10.[address] a/p showing a fluid filled, mildly dilated appendix equivocal for acute appendicitis. The patient was tender to palpation in the RLQ. Patient was made NPO with IVF and booked for the OR. On the AM of 08/09 the patient went to the OR with Dr. Baron for a laparoscopic appendectomy. The patient tolerated the procedure well, see operative report for full details. Post operatively the patient's diet was advanced, pain managed on prn meds, and incisions clean/dry/intact. On POD#0 the patient was deemed stable for discharge to home. Total Time Total Time Spent Total Time Spent (In Minutes): 10 Discharge Plan Discharge Items Patient Disposition: Home - Self-Care Reason For Visit: APPY Discharge Diagnosis: laparoscopic appendicitis Condition on Discharge: Good Activity: Per Instructions section Lifting: No more than 10 pounds Bathing Comment: may shower starting 08/10/21; no soaking in tubs/pools Exercise/Sports: Wait until after follow-up appointment Driving/Machine Use: no driving while taking narcotics for pain Non-emergency contact: Surgeon Call non-emergency contact if: you have any medication questions, your symptoms worsen, your pain is not controlled, your pain is concerning for you, you have a fever, your temperature is above 101.5, your wound has increased redness, your wound has increased drainage and your wound pain has increased Follow-up/Referrals: Trell Baron DO, FACS [Physician] - 08/23/21 9:30 am (Please call to schedule follow up in clinic within 2 weeks) PCP,NO [Primary Care Provider] - Diet: Regular Addtl Attending Provider Instructions: You may purchase Ibuprofen over the counter if needed for additional pain control. If you do not require the narcotic Percocet for pain you may take plain Tylenol. Do not take plain Tylenol and Percocet together as they both contain Acetaminop hen. You should not exceed >3grams of Acetaminophen within a 24 hour time period. Pending Studies at Discharge: Yes Studies:: surgical pathology Stand-Alone Forms: [facility], Smoking Cessation Medications and DC Order Prescriptions: New oxycodone-acetaminophen [Percocet] 5-325 mg tablet 1 - 2 tab PO .q4-6h PRN (Reason: pain, for initial therapy, max 6 tabs per day) Qty: 12 RF: 0 Continued ibuprofen 200 mg Tablet 200 mg PO DIRECTED PRN (Reason: Pain) RF: 0 simethicone 80 mg Tablet,Chewable 80 mg PO DIRECTED PRN (Reason: BLOATING/GAS RELIEF) RF: 0 Discharge Orders: Discharge Order (Routine); Ordered 08/09/21 Ordered By: Joanne Jackson Admission Data Admit Date/Time: 08/08/21 22:19 Attending Provider: Trell Baron Admit Provider: Trell Baron Primary Care Provider: PCP,NO Other Providers: Trell Baron Other Interventions: Discharge Summary Assessment (RN) Last Done: 08/09/21 15:11 Coding Level of Care Code D/C DAY MANAGEMENT <30 MINS Diagnoses Appendicitis K37
== END 2021-08-09 16:24 | disposition home or self-care (01) ==
LOC: ED 19:39 → EDINP 19:39 → 3N 08-09 00:27
DX: K35.80 Unspecified acute appendicitis